=== PATIENT | female | born 1980 | race American Indian/Alaskan Native ===

== ENCOUNTER 2020-06-01 18:36 | Emergency (ER) | payer MEDICAID, OTHER ==
[2020-06-01] MEDS ORDERED: IBUPROFEN 800 MG TAB PO ONE (20:26)
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
[2020-06-01] MEDS: IBUPROFEN 800 MG TAB PO ONE ×2 (22:59→23:03)
[2020-06-01] MEDS ORDERED: CYCLOBENZAPRINE 10 MG TAB PO ONE (23:00)
[2020-06-02 00:37] VITALS: BP 114/67
== END 2020-06-01 22:25 | disposition home or self-care (01) ==
LOC: ED 18:36
DX: S16.1XXA Strain of muscle, fascia and tendon at neck level, initial encounter (principal); M79.18 Myalgia, other site; Z88.8 Allergy status to other drugs, medicaments and biological substances; Z79.899 Other long term (current) drug therapy; V49.49XA Driver injured in collision with other motor vehicles in traffic accident, initial encounter; Y92.410 Unspecified street and highway as the place of occurrence of the external cause; Y93.89 Activity, other specified; Y99.8 Other external cause status
CPT/HCPCS: 71046; 72040; 72100